=== PATIENT | female | born 1995 | race Caucasian/White ===

== ENCOUNTER 2019-08-27 08:04 | Emergency (ER) | payer OTHER ==
[2019-08-27] MEDS ORDERED: CHERRY SYRUP 10 ML UDC PO ONE (08:19)
[2019-08-27] MEDS ORDERED: DEXAMETHASONE 10 MG/ML VIAL PO STA (08:19)
[2019-08-27 08:20] VITALS: BP 128/77
--- NOTE | 2019-08-27 08:29 | ED Physician Documentation ---
PD HPI HEENT - Stated complaint Stated Complaint: SORE THROAT - History obtained from History obtained from: Patient, Family - History of Present Illness Timing - onset: Today Timing - duration: Hours Timing - details: Gradual onset, Still present Location: Throat Improves: Medication Worsens: Swalllowing Associated symptoms: Congestion, Rhinorrhea, Cough Similar symptoms before: Diagnosis (tonsillitis) Recently seen: Not recently seen - Additional information Additional information: 24-year-old female who works at the middle [employer] has developed a cough and congestion over the past week and this morning she has awakened with a sore throat. She has had tonsillitis previously she is looked at the back of her throat she sees the exudate and she is coming into the emergency department for evaluation. She is not had much in the way of a fever with this. Review of Systems Constitutional: denies: Fever Eyes: denies: Decreased vision Ears: denies: Ear pain Nose: reports: Rhinorrhea / runny nose, Congestion Throat: reports: Sore throat Cardiac: denies: Chest pain / pressure, Palpitations Respiratory: reports: Cough. denies: Dyspnea GI: denies: Vomiting PD PAST MEDICAL HISTORY - Present Medications Home Medications: Ambulatory Orders Medication Instructions Recorded Confirmed Azithromycin [Zithromax] 250 mg PO DAILY #6 tablet 08/27/19 PARoxetine [Paxil] 10 mg DAILY 08/27/19 08/27/19 - Allergies Allergies/Adverse Reactions: Allergies Allergy/AdvReac Type Severity Reaction Status Date / Time Penicillins Allergy Hives Verified 08/27/19 08:28 PD ED PE NORMAL - Vitals Vital signs reviewed: Yes (Normal) - General General: Alert and oriented X 3, No acute distress, Well developed/nourished - HEENT HEENT: Atraumatic, PERRL, EOMI, Ears normal, Other (Pharynx is erythematous with 2+ cryptic exudative tonsils.) - Neck Neck: Supple, no meningeal sign, No bony TTP - Cardiac Cardiac: RRR, No murmur - Respiratory Respiratory: No respiratory distress, Clear bilaterally - Abdomen Abdomen: Soft, Non tender - Back Back: No CVA TTP, No spinal TTP - Derm Derm: Normal color, Warm and dry, No rash - Extremities Extremities: No deformity, No edema - Neuro Neuro: Alert and oriented X 3, 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, No motor deficit, No sensory deficit, Normal speech Eye Opening: Spontaneous Motor: Obeys Commands Verbal: Oriented GCS Score: 15 - Psych Psych: Normal mood, Normal affect Results - Vitals Vitals: Vital Signs - 24 hr 08/27/19 08:18 Temperature 37.1 C Heart Rate 72 Respiratory 15 Rate Blood Pressure 128/77 O2 Saturation 98 Oxygen O2 Source Room air - Labs Labs: Laboratory Tests 08/27/19 08:19 Group A Strep Rapid Negative PD MEDICAL DECISION MAKING - ED course Complexity details: reviewed results, considered differential, d/w patient, d/w family ED course: 24-year-old female with a sore throat does not have cough she is allergic to penicillin she does have tonsillitis. Her rapid strep is negative and we will put her on some zithromax. Departure - Departure Disposition: 01 Home, Self Care Clinical Impression: Tonsillitis Instructions: ED Tonsillitis Follow-Up: [facility] [Provider Group] Prescriptions: Azithromycin [Zithromax] 250 mg PO DAILY #6 tablet Forms: Activity restrictions
[2019-08-27 08:33] LABS: RAPID STREP SCREEN Negative (Negative)
== END 2019-08-27 09:22 | disposition home or self-care (01) ==
LOC: ED 08:04
DX: J03.90 Acute tonsillitis, unspecified (principal)
CPT/HCPCS: 87070; 87077; 87430; 99283; 99284; A9270

== ENCOUNTER 2021-10-03 09:35 | Emergency (ER) | payer OTHER ==
[2021-10-03 10:05] LABS: BASOPHILS # (AUTO) 0.1 10^3/uL (0.0-0.1); BASOPHILS % (AUTO) 0.6 %; EOSINOPHILS # (AUTO) 0.1 10^3/uL (0.0-0.7); EOSINOPHILS % (AUTO) 0.8 %; HCT - HEMATOCRIT 37.5 % (37.0-47.0); HGB - HEMOGLOBIN 12.8 g/dL (12.0-16.0); LYMPHOCYTES # (AUTO) 2.2 10^3/uL (1.5-3.5); LYMPHOCYTES % (AUTO) 24.7 %; MEAN CORPUSCULAR HEMOGLOBIN 29.4 pg (27.0-31.0); MEAN CORPUSCULAR HGB CONC 34.1 g/dL (32.0-36.0); MEAN CORPUSCULAR VOLUME 86.2 fL (81.0-99.0); MEAN PLATELET VOLUME 10.1 fL (7.9-10.8); MONOCYTES # (AUTO) 0.6 10^3/uL (0.0-1.0); MONOCYTES % (AUTO) 7.2 %; NEUTROPHILS # (AUTO) 5.8 10^3/uL (1.5-6.6); PLT - PLATELET COUNT 332 10^3/uL (130-450); RED BLOOD COUNT 4.35 10^6/uL (4.20-5.40); RED CELL DISTRIBUTION WIDTH 12.3 % (12.0-15.0); WHITE BLOOD COUNT 8.7 x10^3/uL (4.8-10.8)
[2021-10-03 10:08] LABS: HCG UR QUAL POSITIVE
[2021-10-03 10:20] LABS: ALBUMIN 4.5 g/dL (3.2-5.5); ALBUMIN/GLOBULIN RATIO 1.6 (1.0-2.2); BILIRUBIN,TOTAL 0.8 mg/dL (0.2-1.0); CALCIUM 9.1 mg/dL (8.5-10.3); CREATININE 0.8 mg/dL (0.4-1.0); POTASSIUM 3.9 mmol/L (3.5-5.0); TOTAL PROTEIN 7.3 g/dL (6.7-8.2)
[2021-10-03 12:14] VITALS: BP 120/80
--- NOTE | 2021-10-03 12:27 | Ultrasound Report ---
PROCEDURE: OB First Trimester w/TV INDICATIONS: early bleeding OUTSIDE/PRIOR DATING DATA: Last menstrual period (LMP): 09/05/2021. LMP-based estimated date of delivery (ULI): 06/12/2022. First dating scan (date and location): 10/03/2021 [facility]. TECHNIQUE: Real-time scanning was performed of the fetus and maternal pelvic organs, with image documentation. Endovaginal scanning was also performed to better visualize the fetus and maternal ovaries. COMPARISON: None. FINDINGS: Embryo: Not identified. No intrauterine gestational sac seen. Measurement variability in dating: +/- 4 weeks by LMP, +/- 7 days by mean sac diameter (use before 6 weeks gestation if crown-rump length not able to be measured), +/- 5 days by crown-rump length (6-12 weeks gestation). Maternal organs: Anteverted uterus. Ovaries are unremarkable. No ovarian mass or cystic lesion. No f ree fluid. IMPRESSION: of uncertain location. No intrauterine gestational sac. No ectopic seen. This could represent a missed . Recommend trending beta hCG and short-term follow-up pelvic ultrasound if clinically indicated. Reviewed by: Danny Tucker MD on 10/03/2021 12:26 PM PDT Approved by: Danny Tucker MD on 10/03/2021 12:26 PM PDT Station ID: [id number]
--- NOTE | 2021-10-03 12:30 | ED Physician Documentation ---
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 Today she has developed acute bleeding and she has passed some clots. She is not having pelvic cramping. She has not been previously. She has not had a miscarriage previously. Review of Systems Constitutional: denies: Fever Ears: denies: Ear pain Nose: denies: Congestion Throat: denies: Sore throat Cardiac: denies: Chest pain / pressure Respiratory: denies: Dyspnea, Cough GI: reports: Nausea. denies: Abdominal Pain, Vomiting, Constipation, Diarrhea : reports: Vaginal bleeding, Now EGA. denies: Dysuria, Frequency Skin: denies: Rash Musculoskeletal: denies: Neck pain, Back pain, Extremity pain Neurologic: denies: Generalized weakness, Focal weakness, Numbness PD PAST MEDICAL HISTORY - Present Medications Home Medications: Ambulatory Orders Medication Instructions Recorded Confirmed Azithromycin [Zithromax] 250 mg PO DAILY #6 tablet 08/27/19 PARoxetine [Paxil] 10 mg DAILY 08/27/19 08/27/19 - Allergies Allergies/Adverse Reactions: Allergies Allergy/AdvReac Type Severity Reaction Status Date / Time Penicillins Allergy Hives Verified 10/03/21 09:49 - Social History Does the pt smoke?: No Smoking Status: Never smoker PD ED PE NORMAL - Vitals Vital signs reviewed: Yes (Hypertensive mild) - General General: Alert and oriented X 3, No acute distress - HEENT HEENT: Atraumatic, PERRL, EOMI - Neck Neck: Supple, no meningeal sign, No bony TTP - Cardiac Cardiac: RRR, No murmur - Respiratory Respiratory: No respiratory distress, Clear bilaterally - Abdomen Abdomen: Normal bowel sounds, Soft, Non tender, Non distended, No organomegaly - Back Back: No CVA TTP, No spinal TTP - Derm Derm: Normal color, Warm and dry, No rash - Extremities Extremities: No deformity, No edema - Neuro Neuro: Alert and oriented X 3, balling head tender 2-12 intact, No motor deficit, No sensory deficit, Normal speech Eye Opening: Spontaneous Motor: Obeys Commands Verbal: Oriented GCS Score: 15 - Psych Psych: Normal mood, Normal affect Results - Vitals Vitals: Vital Signs - 24 hr 10/03/21 10/03/21 10/03/21 09:46 10:03 12:13 Temperature 36.7 C Heart Rate 92 79 76 Respiratory 18 18 18 Rate Blood Pressure 136/89 H 126/92 H 120/80 O2 Saturation 98 99 100 Oxygen O2 Source Room air - Labs Labs: Laboratory Tests 10/03/21 10/03/21 10/03/21 09:49 09:56 09:56 WBC 8.7 RBC 4.35 Hgb 12.8 Hct 37.5 MCV 86.2 MCH 29.4 MCHC 34.1 RDW 12.3 Plt Count 332 MPV 10.1 Neut # (Auto) 5.8 Lymph # (Auto) 2.2 [place] # (Auto) 0.6 Eos # (Auto) 0.1 Baso # (Auto) 0.1 Absolute Nucleated RBC 0.00 Nucleated RBC % 0.0 Sodium 135 Potassium 3.9 Chloride 105 Carbon Dioxide 22 Anion Gap 8.0 BUN 17 Creatinine 0.8 Estimated GFR (MDRD) 86 L Glucose 107 H Calcium 9.1 Total Bilirubin 0.8 AST 18 ALT 18 Alkaline Phosphatase 35 L Total Protein 7.3 Albumin 4.5 Globulin 2.8 Albumin/Globulin Ratio 1.6 Lipase 38 HCG, Quant Urine HCG, Qual POSITIVE Blood Type 10/03/21 10/03/21 09:56 09:56 WBC RBC Hgb Hct MCV MCH MCHC RDW Plt Count MPV Neut # (Auto) Lymph # (Auto) [place] # (Auto) Eos # (Auto) Baso # (Auto) Absolute Nucleated RBC Nucleated RBC % Sodium Potassium Chloride Carbon Dioxide Anion Gap BUN Creatinine Estimated GFR (MDRD) Glucose Calcium Total Bilirubin AST ALT Alkaline Phosphatase Total Protein Albumin Globulin Albumin/Globulin Ratio Lipase HCG, Quant 1181.89 Urine HCG, Qual Blood Type B POSITIVE - Rads (name of study) u/s pelvic Radiology: Prelim report reviewed (Impression: of uncertain location. No intrauterine gestational sac. No ectopic seen. This could represent a missed . Recommend trending beta hCG and short-term follow- up pelvic ultrasound if clinically indicated.), EMP read indepedently, See rad report PD MEDICAL DECISION MAKING - ED course Complexity details: reviewed results, re-evaluated patient, considered differential, d/w patient, d/w family ED course: 26-year-old female recently has developed acute vaginal bleeding has an hCG of 1181 and no visible fetus on ultrasound examination. I discussed the findings with the patient recommended they get a second quantitative hCG in 2 days time. They will follow-up at [facility]. I have asked the patient return to the hospital should her bleeding exceed 2 pads per hour for 4 hours. Departure - Departure Disposition: 01 Home, Self Care Clinical Impression: Threatened Condition: Stable Instructions: ED Miscarriage Poss Follow-Up: [facility] [Provider Group] Comments: Karolyn today your quantitative hCG number was 1181. This is a fairly low number and we do not always expect to see a fetus on ultrasound examination. Today we did not see a fetus and the recommendation is to have this number repeated in 2 days. This number will either be going down consistent with a miscarriage, going up consistent with a normal or going up slowly consistent with a possible ectopic . So it is important to get this number and follow up with your primary. We may or may not require a repeat ultrasound depending on the results. If you have bleeding that exceeds 2 pads per hour for more than 4 hours return to the emergency department for further evaluation.
== END 2021-10-03 13:27 | disposition home or self-care (01) ==
LOC: ED 09:35
DX: O20.0 Threatened abortion (principal); Z3A.00 Weeks of gestation of pregnancy not specified
CPT/HCPCS: 36415; 80053; 81025; 83690; 84702; 85025; 86900; 86901; 99282; 99284

== ENCOUNTER 2021-10-13 08:02 | Emergency (ER) | payer OTHER ==
--- NOTE | 2021-10-13 08:21 | ED Physician Documentation ---
PD HPI ABD PAIN - Stated complaint Stated Complaint: BLEEDING/SPOTTING - Chief complaint Chief Complaint: Abd Pain - History obtained from History obtained from: Patient - Additional information Additional information: seen here about 10 days ago for threatened , nondiagnostic ultrasound at the time with beta hCG of 1181. [place] beta-hCG per her of 350. She is been spotting since but started having heavy bleeding with clots this morning. There is no significant pain. Review of Systems Ten Systems: 10 systems reviewed and negative Constitutional: reports: Reviewed and negative Cardiac: reports: Reviewed and negative Respiratory: reports: Reviewed and negative PD PAST MEDICAL HISTORY - Present Medications Home Medications: Ambulatory Orders Medication Instructions Recorded Confirmed Azithromycin [Zithromax] 250 mg PO DAILY #6 tablet 08/27/19 PARoxetine [Paxil] 10 mg DAILY 08/27/19 08/27/19 - Allergies Allergies/Adverse Reactions: Allergies Allergy/AdvReac Type Severity Reaction Status Date / Time Penicillins Allergy Hives Verified 10/13/21 08:11 - Social History Does the pt smoke?: No Smoking Status: Never smoker PD ED PE NORMAL - Vitals Vital signs reviewed: Yes - General General: Alert and oriented X 3, No acute distress - Cardiac Cardiac: RRR, No murmur - Respiratory Respiratory: No respiratory distress, Clear bilaterally - Abdomen Abdomen: Normal bowel sounds, Soft, Non tender - Female 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 RN), Other (There was a small mass may be 1 x 0.5 cm consistent with tissue in the cervical os which was removed with forceps.) - Derm Derm: Normal color - Extremities Extremities: No edema, No calf tenderness / cord - Neuro Neuro: Alert and oriented X 3, Normal speech Results - Vitals Vitals: Vital Signs - 24 hr 10/13/21 08:08 Temperature 36.0 C L Heart Rate 134 H Respiratory 16 Rate Blood Pressure 149/77 H O2 Saturation 99 Oxygen O2 Source Room air - Labs Labs: Laboratory Tests 10/13/21 10/13/21 10/13/21 08:15 08:15 08:15 WBC 8.1 RBC 4.06 L Hgb 11.9 L Hct 35.7 L MCV 87.9 MCH 29.3 MCHC 33.3 RDW 12.7 Plt Count 362 MPV 10.4 Neut # (Auto) 5.4 Lymph # (Auto) 2.0 [place] # (Auto) 0.5 Eos # (Auto) 0.1 Baso # (Auto) 0.0 Absolute Nucleated RBC 0.00 Nucleated RBC % 0.0 Sodium 136 Potassium 4.2 Chloride 103 Carbon Dioxide 23 Anion Gap 10.0 BUN 21 H Creatinine 0.9 Estimated GFR (MDRD) 75 L Glucose 108 H Calcium 9.2 HCG, Quant 296.91 - Rads (name of study) Pelvic ultrasound demonstrates no IUP or free fluid. Radiology: Final report received PD MEDICAL DECISION MAKING - ED course ED course: 26-year-old woman with of unknown location presents now with heavy bleeding but no pain. Ultrasound still nondiagnostic with dropping beta hCG but noting it has not dropped much in the last week. Pelvic exam done and there was a small mass in the cervical os consistent with products of conception. This was removed during exam and subsequently her bleeding tapered significantly. Departure - Departure Disposition: 01 Home, Self Care Clinical Impression: Miscarriage Condition: Good Record reviewed to determine appropriate education?: Yes Instructions: ED Miscarriage Completed Comments: Return if you develop increasing bleeding or cramps. Not unreasonable to have 1 more beta-hCG done in a few days or a week to make sure it continues to drop to or near 0.
[2021-10-13 08:33] LABS: BASOPHILS % (AUTO) 0.4 %; EOSINOPHILS # (AUTO) 0.1 10^3/uL (0.0-0.7); EOSINOPHILS % (AUTO) 1.2 %; HCT - HEMATOCRIT 35.7 % (37.0-47.0); HGB - HEMOGLOBIN 11.9 g/dL (12.0-16.0); LYMPHOCYTES % (AUTO) 24.7 %; MEAN CORPUSCULAR HEMOGLOBIN 29.3 pg (27.0-31.0); MEAN CORPUSCULAR HGB CONC 33.3 g/dL (32.0-36.0); MEAN CORPUSCULAR VOLUME 87.9 fL (81.0-99.0); MEAN PLATELET VOLUME 10.4 fL (7.9-10.8); MONOCYTES # (AUTO) 0.5 10^3/uL (0.0-1.0); MONOCYTES % (AUTO) 6.3 %; NEUTROPHILS # (AUTO) 5.4 10^3/uL (1.5-6.6); NEUTROPHILS % (AUTO) 66.5 %; PLT - PLATELET COUNT 362 10^3/uL (130-450); RED BLOOD COUNT 4.06 10^6/uL (4.20-5.40); RED CELL DISTRIBUTION WIDTH 12.7 % (12.0-15.0); WHITE BLOOD COUNT 8.1 x10^3/uL (4.8-10.8)
[2021-10-13 08:42] LABS: CALCIUM 9.2 mg/dL (8.5-10.3); CREATININE 0.9 mg/dL (0.4-1.0); POTASSIUM 4.2 mmol/L (3.5-5.0)
--- NOTE | 2021-10-13 09:35 | Ultrasound Report ---
PROCEDURE: OB First Trimester w/TV INDICATIONS: preg/ VB OUTSIDE/PRIOR DATING DATA: Last menstrual period (LMP): 09/05/2021. LMP-based estimated date of delivery (ULI): 06/12/2022. First dating scan (date and location): 10/03/2021. No intrauterine was identified at the time of the previous ultrasound. TECHNIQUE: Real-time scanning was performed of the fetus and maternal pelvic organs, with image documentation. Endovaginal scanning was also performed to better visualize the fetus and maternal ovaries. COMPARISON: 10/03/2021 FINDINGS: No intrauterine . No pelvic free fluid. No suspicious adnexal lesion. There is a left corpus luteal cyst measuring 2.2 x 1.4 x 2.0 cm. IMPRESSION: Findings are consistent with a spontaneous early first trimester miscarriage. Beta hCG is noted to be falling, and there is no intrauterine . Reviewed by: Isidoro Doan MD on 10/13/2021 9:34 AM PDT Approved by: Isidoro Doan MD on 10/13/2021 9:34 AM PDT Station ID: [id number]
[2021-10-13 10:49] VITALS: BP 118/84
== END 2021-10-13 10:54 | disposition home or self-care (01) ==
LOC: ED 08:02
DX: O03.9 Complete or unspecified spontaneous abortion without complication (principal)
CPT/HCPCS: 36415; 80048; 84702; 85025; 86850; 86900; 86901; 99282; 99284